=== PATIENT | female | born 1940 | race Caucasian/White ===

== ENCOUNTER 2018-11-17 12:06 | Emergency (ER) | payer MEDICARE, OTHER ==
[2018-11-17 12:14] VITALS: BP 141/74
--- NOTE | 2018-11-17 13:30 | EDM.PDOC ---
ED HPI GENERAL MEDICAL PROBLEM - General Chief Complaint: General Stated Complaint: LUNG CANCER AND SOB Time Seen by Provider: 11/17/18 13:14 Source of Information: Reports: Patient, RN Notes Reviewed History Limitations: Reports: No Limitations - History of Present Illness INITIAL COMMENTS - FREE TEXT/NARRATIVE: The patient states that she underwent a thyroid biopsy this past September, which found a thyroid cancer. She then underwent a complete thyroidectomy on 10/30/2018 at [facility]. She was discharged home the following day, 10/31/2018, on levothyroxine. Her sutures were removed a week later. The patient states that she has had a diminished voice and dyspnea whenever she speaks for a prolonged period of time, ever since surgery. No recent fever. When she called her surgeon's office today, she was instructed to go to the ER. The patient states that she has an appointment to see Dr. Powell, an [facility] Presser, on 12/04/2018, then follow-up with her surgeon the following day , 12/05/2018. The patient's PCP is Dr. Paula Coker. Posterior Throat Pain Score (Numeric/FACES): 6 - Related Data Allergies Allergy/AdvReac Type Severity Reaction Status Date / Time animal dander Allergy Airway Verified 08/26/16 07:25 Tightness codeine Allergy Airway Verified 08/26/16 07:25 Tightness Penicillins Allergy Cannot Verified 03/20/18 09:30 Remember Home Meds: Home Meds Levothyroxine 125 mcg PO DAILY 11/17/18 [History] Losartan Potassium 100 mg PO DAILY 11/17/18 [History] amLODIPine [Norvasc] 5 mg PO DAILY 11/17/18 [History] Past Medical History Cardiovascular History: Reports: Hypertension Gastrointestinal History: Reports: Colon Polyp 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 ED EXAM, GENERAL - Physical Exam Exam: See Below Exam Limited By: No Limitations General Appearance: Alert, WD/WN, No Apparent Distress Eye Exam: Bilateral Eye: EOMI, Normal Inspection Ears: Normal External Exam, Normal Canal, Hearing Grossly Normal, Normal TMs Nose: Normal Inspection, Normal Mucosa, No Blood Throat/Mouth: Normal Inspection, Normal Lips, Normal Teeth, Normal Gums, Normal Oropharynx, Normal Voice (slightly hoarse), No Airway Compromise Head: Atraumatic, Normocephalic Neck: Supple, Non-Tender, Full Range of Motion, Other (Well-healing transverse scar at the inferior aspect of the patient's anterior neck, without associated swelling, erythema or other suggestion of infection). No: Lymphadenopathy (L), Lymphadenopathy (R) Respiratory/Chest: No Respiratory Distress, Lungs Clear, Normal Breath Sounds, No Accessory Muscle Use. No: Decreased Breath Sounds, Crackles, Rhonchi, Wheezing, Stridor, Prolonged Expiration Cardiovascular: Normal Peripheral Pulses, Regular Rate, Rhythm, No Gallop, No JVD, No Murmur, No Rub Peripheral Pulses: 4+: Radial (L), Radial (R) GI/Abdominal: Normal Bowel Sounds, Soft, Non-Tender, No Organomegaly, No Distention, No Abnormal Bruit, No Mass (Female) Exam: Deferred Rectal (Female) Exam: Deferred Back Exam: Normal Inspection, Full Range of Motion, NT Extremities: Normal Inspection, Normal Range of Motion, No Pedal Edema, Normal Capillary Refill Neurological: Alert, Oriented, Normal Cognition, No Motor/Sensory Deficits Psychiatric: Normal Affect Skin Exam: Warm, Dry, Intact, Normal Color, No Rash Course - Vital Signs Last Recorded V/S: Last Vital Signs Temp 37.3 C 11/17/18 12:11 Pulse 87 11/17/18 12:11 Resp 20 11/17/18 12:11 BP 141/74 H 11/17/18 12:11 Pulse Ox 99 11/17/18 12:11 - Orders/Labs/Meds Orders: Active Orders 24 hr Category Date Time Status Chest 2V [CR] Stat Exams 11/17/18 13:27 Taken Labs: Laboratory Tests 11/17/18 11/17/18 11/17/18 Range/Units 13:45 13:45 13:45 WBC 5.38 (3.98-10.04) K/mm3 RBC 3.90 L (3.98-5.22) M/mm3 Hgb 11.7 (11.2-15.7) gm/L Hct 35.7 (34.1-44.9) % MCV 91.5 (79.4-94.8) fl MCH 30.0 (25.6-32.2) pg MCHC 32.8 (32.2-35.5) g/dl RDW Std Deviation 40.3 (36.4-46.3) fL Plt Count 289 (182-369) K/mm3 MPV 10.0 (9.4-12.3) fl Neutrophils % (Manual) 70 H (40-60) % Band Neutrophils % 0 (0-10) % Lymphocytes % (Manual) 25 (20-40) % Atypical Lymphs % 0 % Monocytes % (Manual) 1 L (2-10) % Eosinophils % (Manual) 4 (0.7-5.8) % Basophils % (Manual) 0 L (0.1-1.2) Platelet Estimate Adequate Poikilocytosis 1+ slight Tear Drop Cells Few Ovalocytes 1+ slight RBC Morph Comment Not Reportable D-Dimer, Quantitative 0.41 (0.19-0.50) mg/L Sodium 143 (136-145) mEq/L Potassium 3.8 (3.5-5.1) mEq/L Chloride 107 (98-107) mEq/L Carbon Dioxide 26 (21-32) mEq/L Anion Gap 13.8 (5-15) BUN 19 H (7-18) mg/dL Creatinine 0.8 (0.55-1.02) mg/dL Est Cr Clr Drug Dosing 58.61 mL/min Estimated GFR (MDRD) > 60 (>60) mL/min BUN/Creatinine Ratio 23.8 H (14-18) Glucose 103 (83-115) mg/dL Calcium 7.8 L (8.5-10.1) mg/dL Magnesium 1.9 (1.8-2.4) mg/dl Total Bilirubin 0.4 (0.2-1.0) mg/dL AST 16 (15-37) U/L ALT 25 (14-59) U/L Alkaline Phosphatase 62 (46-116) U/L Total Protein 6.6 (6.4-8.2) g/dl Albumin 3.5 (3.4-5.0) g/dl Globulin 3.1 gm/dL Albumin/Globulin Ratio 1.1 (1-2) - Re-Assessments/Exams Free Text/Narrative Re-Assessment/Exam: 11/17/18 13:28 Although the patient states that her voice is hoarse, it is quite minimal - almost unnoticeable, and I did not find any abnormalities on her physical exam, either intraorally, or on pulmonary exam. Her lungs are clear to auscultation bilaterally, and she has no stridor. Her oxygen saturation is 99% on room air. I have ordered a CBC, CMP, and magnesium level to make sure that the patient does not have any immediate consequences from her surgery, and a D-dimer, to rule out a PE. I also ordered a chest x-ray, as per the recommendation of her surgeon's nurse, although I do not expect to find any abnormalities. 11/17/18 14:10 2-view chest radiograph reviewed. The cardiac silhouette is within normal limits. No pulmonary vascular congestion. No pleural effusions. No focal infiltrate. No pneumothorax. There is scoliosis. Calcification of the bilateral inferior costal cartilage is incidentally noted. Formal read per the Radiologist pending. 11/17/18 15:30 Test results discussed with the patient. Today's workup, including a CBC, CMP, magnesium level, D-dimer, and chest x-ray, are entirely unremarkable, with the exception of the patient's non-corrected calcium level being mildly low at 7.8. In accordance with current guidelines, I recommended the patient take calcium with vitamin D. The patient tells me that she is already taking Tums and vitamin D, although neither of those medicines are on her medication list. In that case, I recommended that the patient needs to take the Tums and vitamin D, then follow-up with her [facility] Presser at her currently scheduled appointment . Today's workup did not include a TSH level, as it has not been 5 weeks since the patient was started on levothyroxine (it has only been 2 and a half weeks). The patient's [facility] Presser will almost certainly recheck her thyroid level and determine if she needs additional levothyroxine. Departure - Departure Time of Disposition: 15:33 Disposition: Home, Self-Care 01 Condition: Good Clinical Impression: Hoarseness of voice, Shortness of breath - Discharge Information *PRESCRIPTION DRUG MONITORING PROGRAM REVIEWED*: Not Applicable *COPY OF PRESCRIPTION DRUG MONITORING REPORT IN PATIENT DIANE: Not Applicable Instructions: Shortness of Breath, Adult, Xmol-ha-Bopb Referrals: Paula Coker MD [Primary Care Provider] - Forms: ED Department Discharge Additional Instructions: You were seen in the emergency room for a hoarse voice and shortness of breath since undergoing thyroidectomy on 10/30/2018. Workup in the ER included a CBC, a CMP, a magnesium level, a D-dimer, and a chest x-ray. Your non-corrected calcium level was found to be mildly low at 7.8. Based on this level, we recommend that you continue to take Tums and vitamin D. The remainder of your workup was unremarkable. You are not anemic. There is no sign of an infection. The remainder of your electrolytes were normal. You do not have a blood clot in your lungs. You do not have pneumonia. Since it has only been 2 and a half weeks since you were started on levothyroxine, a TSH level was not checked. Follow-up with your Y[facility] Presser at your previously scheduled appointment on 12/04/2018, then your Surgeon at your previously scheduled appointment on 2018. If any other problems, please do not hesitate to return to the ER. - My Orders Last 24 Hours: My Active Orders 11/17/18 13:27 Chest 2V [CR] Stat - Assessment/Plan Last 24 Hours: My Active Orders 11/17/18 13:27 Chest 2V [CR] Stat
--- NOTE | 2018-11-18 09:39 | CR ---
Chest: Two views of the chest were obtained. Comparison: Prior chest x-ray of 10/27/18. Heart size is slightly enlarged. Tortuous thoracic aorta is seen. Lungs are clear with no acute parenchymal change. Minimal degenerative change is scattered within the spine with mild scoliosis. Impression: 1. Incidental findings. Nothing acute is appreciated. Diagnostic code #2
== END 2018-11-17 15:55 | disposition home or self-care (01) ==
LOC: JD.ED 12:06
DX: R49.0 Dysphonia (principal); R06.02 Shortness of breath; I10 Essential (primary) hypertension; Z85.850 Personal history of malignant neoplasm of thyroid; Z90.89 Acquired absence of other organs; Z91.09 Other allergy status, other than to drugs and biological substances; Z88.5 Allergy status to narcotic agent; Z88.0 Allergy status to penicillin
CPT/HCPCS: 36415; 71046; 71046-26; 80053; 83735; 85007; 85027; 85379; 99282; 99285

== ENCOUNTER 2019-01-11 16:00 | Emergency (ER) | payer MEDICARE, OTHER | END 2019-01-11 16:05 | disposition home or self-care (01) | LOC: JD.ED 16:00 | DX: S62.514A Nondisplaced fracture of proximal phalanx of right thumb, initial encounter for closed fracture (principal); V49.40XA Driver injured in collision with unspecified motor vehicles in traffic accident, initial encounter | CPT/HCPCS: 29125 ==

== ENCOUNTER 2022-02-23 05:23 | Emergency (ER) | payer MEDICARE, OTHER ==
[2022-02-23 05:43] VITALS: BP 147/91; PULSE 94
[2022-02-23] MEDS ORDERED: Sodium Chloride 0.9% 10 ML Syringe FLUSH PRN (05:55)
[2022-02-23] MEDS ORDERED: Famotidine 20 MG/2 ML SDV IVPUSH PRN (05:55)
[2022-02-23] MEDS ORDERED: EPINEPHrine 1 MG/ML SDV IM PRN (05:55)
[2022-02-23] MEDS ORDERED: diphenhydrAMINE 50 MG/ML SDV IVPUSH PRN (05:55)
[2022-02-23] MEDS ORDERED: methylPREDNISolone Sodium Succinate 125 MG/2 ML SDV IVPUSH PRN (05:55)
[2022-02-23] MEDS ORDERED: Albuterol 6.7 GM Inhaler INH ONE (05:56)
[2022-02-23] MEDS ORDERED: Sodium Chloride 0.9% 10 ML Syringe FLUSH SCH (06:00)
[2022-02-23] MEDS ORDERED: Acetaminophen 325 MG Tab PO ONE (07:15)
[2022-02-23] MEDS ORDERED: NS + KCl 20mEq/L 1,000 ML IV SCH (07:30)
[2022-02-23] MEDS ORDERED: Sodium Chloride 0.9% 10 ML Syringe FLUSH ONE (07:36)
[2022-02-23] MEDS ORDERED: Iopamidol 755 Mg/ML 100 ML Bottle IVPUSH ONE (07:36)
[2022-02-23] MEDS ORDERED: Sodium Chloride 0.9% 100 ML IV SCH (07:45)
== END 2022-02-23 09:33 | disposition home or self-care (01) ==
LOC: JD.ED 05:23
DX: U07.1 COVID-19 (principal); I10 Essential (primary) hypertension; Z86.16 Personal history of COVID-19; Z88.0 Allergy status to penicillin; Z88.5 Allergy status to narcotic agent; Z91.09 Other allergy status, other than to drugs and biological substances; Z79.899 Other long term (current) drug therapy
CPT/HCPCS: 36415; 71045; 71275; 80053; 84484; 85025; 85379; 93005; 94640; 96365; 96366; 99285; A9270; J3480; J3490; Q0222; Q9967; 93010; 99284

== ENCOUNTER 2022-02-24 08:10 | Emergency (ER) | payer MEDICARE, OTHER ==
[2022-02-24 08:28] VITALS: PULSE 103
[2022-02-24] MEDS ORDERED: cefTRIAXone 1 GM Vial IM ONE (09:03)
[2022-02-24 09:12] VITALS: BP 123/83
[2022-02-24] MEDS ORDERED: cefTRIAXone 1 GM, Lidocaine 1% 2.1 ML IM ONE ×2 (09:38)
== END 2022-02-24 10:10 | disposition home or self-care (01) ==
LOC: JD.ED 08:10
DX: S32.010A Wedge compression fracture of first lumbar vertebra, initial encounter for closed fracture (principal); K59.01 Slow transit constipation; I10 Essential (primary) hypertension; Z88.5 Allergy status to narcotic agent; Z88.0 Allergy status to penicillin; Z91.09 Other allergy status, other than to drugs and biological substances; Z79.899 Other long term (current) drug therapy; Z86.16 Personal history of COVID-19
CPT/HCPCS: 96372; 99282; J0696

== ENCOUNTER → 2022-04-14 | Day surgery (SDC) | payer MEDICARE, OTHER ==
[~2022-04-14] MED LIST: Citric Acid/Sodium Citrate Solution 30 ML Cup ONE; Citric Acid/Sodium Citrate Solution 30 ML Cup PO ONE; Dexamethasone 4 MG/ML 5 ML MDV ONE; EPINEPHrine 1 MG/ML SDV ONE; Ketorolac 15 MG/ML SDV ONE; Lactated Ringers 1,000 ML IV SCH; Lactated Ringers 1,000 ML ONE; Lidocaine 1% 2 ML ONE; Lidocaine 1%/Sod Bicarbonate in NS 8.4% 1 ML Syringe IDERM PRN; Midazolam 1 MG/ML 2 ML SDV ONE; Morphine 2 MG/ML SYRINGE ONE; Morphine 8 MG, EPINEPHrine 0.3 MG, Cefuroxime 750 MG, Ketorolac 30 MG, Sodium Chloride ... PRN; Ondansetron 4 MG/2 ML SDV IVPUSH PRN; Ondansetron 4 MG/2 ML SDV ONE; Propofol 200 MG/20 ML SDV ONE; Ropivacaine 0.5% 5 MG/ML 30 ML SDV ONE; Scopolamine 1.5 MG Transdermal Patch TOP ONE; Sodium Chloride 0.9% 10 ML Syringe FLUSH PRN; Sodium Chloride 0.9% 10 ML Syringe FLUSH SCH; Vancomycin 1 GM SDV ONE; ceFAZolin 2 GM Vial ONE; fentaNYL 100 MCG/2 ML SDV IVPUSH PRN; fentaNYL 100 MCG/2 ML SDV ONE; oxyCODONE 5 MG Tab PO ONE
[2022-04-14 10:45] VITALS: BP 141/70
[2022-04-14 11:40] VITALS: PULSE 70
== END | disposition home or self-care (01) ==
LOC: JD.SDS 06:07
PROVIDERS: ATTEND Orthopaedic Surgery
DX: M17.12 Unilateral primary osteoarthritis, left knee (principal); E03.9 Hypothyroidism, unspecified; I10 Essential (primary) hypertension; E78.5 Hyperlipidemia, unspecified; R63.0 Anorexia; E87.6 Hypokalemia; E83.51 Hypocalcemia; Z79.890 Hormone replacement therapy; Z79.899 Other long term (current) drug therapy; Z88.5 Allergy status to narcotic agent; Z88.0 Allergy status to penicillin; Z90.49 Acquired absence of other specified parts of digestive tract; Z98.890 Other specified postprocedural states
CPT/HCPCS: 0055T; 27447; 36415; 73560; 84484; 97116; 97161; A9270; C1713; C1776; J0171; J0690; J0697; J1100; J1885; J2250; J2270; J2405; J2704; J2795; J3370; J7120; 01402; 64447; 99100; J3010

== ENCOUNTER 2022-04-22 18:20 | Emergency (ER) | payer MEDICARE, OTHER ==
[2022-04-22 18:34] VITALS: BP 121/76; PULSE 107
[2022-04-22] MEDS ORDERED: Sodium Chloride 0.9% 1,000 ML IV STA (18:52)
== END 2022-04-22 21:07 | disposition home or self-care (01) ==
LOC: JD.ED 18:20
DX: G89.18 Other acute postprocedural pain (principal); D64.9 Anemia, unspecified; K59.00 Constipation, unspecified; E03.9 Hypothyroidism, unspecified; I10 Essential (primary) hypertension; Z88.5 Allergy status to narcotic agent; Z88.0 Allergy status to penicillin; Z91.048 Other nonmedicinal substance allergy status; Z79.899 Other long term (current) drug therapy; Z86.16 Personal history of COVID-19; Z90.49 Acquired absence of other specified parts of digestive tract
CPT/HCPCS: 74018; 96360; 99284; J7030

== ENCOUNTER 2022-04-25 10:21 | Emergency (ER) | payer MEDICARE, OTHER ==
[2022-04-25] MEDS ORDERED: Lidocaine 2% Jelly 10 ML Urojet MUCMEM ONE ×2 (12:52→13:18)
[2022-04-25] MEDS ORDERED: Lidocaine 2% 11 ML Jelly Filled Syringe ONE (13:06)
[2022-04-25] MEDS ORDERED: Ibuprofen 600 MG Tab PO ONE (14:30)
[2022-04-25 18:01] VITALS: BP 116/77; PULSE 54
== END 2022-04-25 18:00 | disposition home or self-care (01) ==
LOC: JD.ED 10:21
DX: K64.8 Other hemorrhoids (principal); E78.00 Pure hypercholesterolemia, unspecified; I10 Essential (primary) hypertension; M19.90 Unspecified osteoarthritis, unspecified site; E03.9 Hypothyroidism, unspecified; Z88.0 Allergy status to penicillin; Z88.5 Allergy status to narcotic agent; Z91.09 Other allergy status, other than to drugs and biological substances; Z79.899 Other long term (current) drug therapy; Z86.16 Personal history of COVID-19
CPT/HCPCS: 36415; 74018; 85014; 85018; 99283; A9270

== ENCOUNTER 2022-04-29 14:48 | Inpatient (IN) | payer MEDICARE, OTHER ==
[2022-04-29] MEDS ORDERED: Sodium Chloride 0.9% 10 ML Syringe FLUSH ONE (15:43)
[2022-04-29] MEDS ORDERED: Iopamidol 755 Mg/ML 100 ML Bottle IVPUSH ONE (15:43)
[2022-04-29] MEDS ORDERED: Sodium Chloride 0.9% 100 ML IV SCH (15:45)
[2022-04-29] MEDS ORDERED: Ondansetron 4 MG/2 ML SDV IV PRN (16:33)
[2022-04-29] MEDS ORDERED: Sodium Chloride 0.9% 10 ML Syringe FLUSH PRN (16:33)
[2022-04-29] MEDS ORDERED: Albuterol 6.7 GM Inhaler INH PRN (16:38)
[2022-04-29] MEDS ORDERED: Sodium Chloride 0.9% 1,000 ML IV SCH ×2 (16:45→19:45)
[2022-04-29] MEDS: Heparin Sodium 5,000 Units/ML Vial SUBCUT SCH (19:28)
[2022-04-29] MEDS ORDERED: Potassium Chloride 20 MEQ Tab.ER PO ONE (19:42)
[2022-04-29] MEDS: Cyclobenzaprine 10 MG Tab PO PRN (20:12)
[2022-04-29] MEDS ORDERED: LORazepam 2 MG/ML SDV IVPUSH ONE (21:32)
[2022-04-30] MEDS ORDERED: Sodium Chloride 3% 500 ML IV SCH ×2 (00:03→08:30)
[2022-04-30] MEDS: Heparin Sodium 5,000 Units/ML Vial SUBCUT SCH ×3 (02:15→19:25)
[2022-04-30] MEDS: Levothyroxine 125 MCG Tab PO SCH (06:12)
[2022-04-30] MEDS ORDERED: Triamcinolone Acetonide 0.1% Crm 15 GM Tube TOP PRN (07:07)
[2022-04-30] MEDS: Losartan 100 MG Tab PO SCH (08:33)
[2022-04-30] MEDS: amLODIPine 5 MG Tab PO SCH (08:38)
[2022-04-30] MEDS ORDERED: Sodium Chloride 0.9% 1,000 ML IV SCH (12:30)
[2022-04-30] MEDS: Sodium Chloride 1 GM Tab PO SCH (21:08)
[2022-05-01] MEDS: Acetaminophen 325 MG Tab PO PRN ×3 (00:12→19:31)
[2022-05-01] MEDS: Cyclobenzaprine 10 MG Tab PO PRN ×2 (02:03→21:13)
[2022-05-01] MEDS: Heparin Sodium 5,000 Units/ML Vial SUBCUT SCH ×3 (02:05→18:31)
[2022-05-01] MEDS ORDERED: Sodium Chloride 0.9% 1,000 ML IV SCH (03:30)
[2022-05-01] MEDS: Levothyroxine 125 MCG Tab PO SCH (06:06)
[2022-05-01] MEDS: Sodium Chloride 1 GM Tab PO SCH ×3 (06:06→21:13)
[2022-05-01] MEDS ORDERED: Metoclopramide 5 MG Tab PO PRN (09:52)
[2022-05-01] MEDS: amLODIPine 5 MG Tab PO SCH (10:02)
[2022-05-01] MEDS: Megestrol Susp 40 MG/ML 10 ML UD Cup PO SCH (10:05)
[2022-05-01] MEDS: Losartan 100 MG Tab PO SCH (10:05)
[2022-05-01] MEDS: Ondansetron 4 MG Tab.DIS PO PRN ×2 (12:28→16:25)
[2022-05-01 16:19] VITALS: PULSE 77
[2022-05-02] MEDS: Heparin Sodium 5,000 Units/ML Vial SUBCUT SCH ×2 (02:59→09:30)
[2022-05-02] MEDS: Levothyroxine 125 MCG Tab PO SCH (05:17)
[2022-05-02] MEDS: Sodium Chloride 1 GM Tab PO SCH (05:17)
[2022-05-02] MEDS: Acetaminophen 325 MG Tab PO PRN (09:30)
[2022-05-02] MEDS: Megestrol Susp 40 MG/ML 10 ML UD Cup PO SCH (09:31)
[2022-05-02] MEDS: Losartan 100 MG Tab PO SCH (09:31)
[2022-05-02] MEDS: amLODIPine 5 MG Tab PO SCH (09:33)
[2022-05-02 13:56] VITALS: BP 114/69
== END 2022-05-02 12:53 | DRG 641 ==
LOC: JD.ED 14:48 → JD.ICU 16:33
PROVIDERS: ADMIT Hospitalist; ATTEND Hospitalist
DX: R41.0 Disorientation, unspecified (principal); E87.1 Hypo-osmolality and hyponatremia; Z96.653 Presence of artificial knee joint, bilateral; I10 Essential (primary) hypertension; E03.9 Hypothyroidism, unspecified; J30.9 Allergic rhinitis, unspecified; M54.2 Cervicalgia; R63.0 Anorexia; M41.9 Scoliosis, unspecified; E78.00 Pure hypercholesterolemia, unspecified; H91.90 Unspecified hearing loss, unspecified ear; M19.90 Unspecified osteoarthritis, unspecified site; Z96.659 Presence of unspecified artificial knee joint; Z79.890 Hormone replacement therapy; Z86.16 Personal history of COVID-19; Z90.49 Acquired absence of other specified parts of digestive tract; Z88.5 Allergy status to narcotic agent; Z88.0 Allergy status to penicillin; Z79.899 Other long term (current) drug therapy; Z91.09 Other allergy status, other than to drugs and biological substances
CPT/HCPCS: 36415; 70450; 70496; 70498; 80053; 83735; 85025; 85610; 93005; 99285; J3490; Q9967; 30901; 80048; 97110-GP; 97116-GP; 97161-GP; 97530-GP; 99222; 99232; 99239; A9270-GY; J1644; J2060; J7030; J7131

== ENCOUNTER → 2022-07-05 | Day surgery (SDC) | payer MEDICARE, OTHER ==
[~2022-07-05] MED LIST changes: -Citric Acid/Sodium Citrate Solution 30 ML Cup ONE; -Citric Acid/Sodium Citrate Solution 30 ML Cup PO ONE; -Dexamethasone 4 MG/ML 5 ML MDV ONE; +EPINEPHrine 0.3 MG, Cefuroxime 750 MG, Ketorolac 30 MG, Sodium Chloride 0.9% 7.9 ML ONE; -EPINEPHrine 1 MG/ML SDV ONE; -Ketorolac 15 MG/ML SDV ONE; +Lactated Ringers 1,000 ML IV ONE; -Lactated Ringers 1,000 ML IV SCH; -Lactated Ringers 1,000 ML ONE; -Lidocaine 1% 2 ML ONE; +Lidocaine 1%/Sod Bicarbonate in NS 8.4% 1 ML Syringe IDERM ONE; -Lidocaine 1%/Sod Bicarbonate in NS 8.4% 1 ML Syringe IDERM PRN; -Midazolam 1 MG/ML 2 ML SDV ONE; -Morphine 2 MG/ML SYRINGE ONE; -Morphine 8 MG, EPINEPHrine 0.3 MG, Cefuroxime 750 MG, Ketorolac 30 MG, Sodium Chloride ... PRN; -Ondansetron 4 MG/2 ML SDV IVPUSH PRN; -Ondansetron 4 MG/2 ML SDV ONE; +Propofol 200 MG/20 ML SDV IV ONE; -Propofol 200 MG/20 ML SDV ONE; -Ropivacaine 0.5% 5 MG/ML 30 ML SDV ONE; -Scopolamine 1.5 MG Transdermal Patch TOP ONE; -Sodium Chloride 0.9% 10 ML Syringe FLUSH PRN; -Sodium Chloride 0.9% 10 ML Syringe FLUSH SCH; +Tranexamic Acid 1,000 MG/10 ML Vial ONE; +ceFAZolin 2 GM Vial IV ONE; -ceFAZolin 2 GM Vial ONE; +fentaNYL 100 MCG/2 ML SDV IV ONE; -fentaNYL 100 MCG/2 ML SDV IVPUSH PRN; -fentaNYL 100 MCG/2 ML SDV ONE; +fentaNYL 12 MCG/HR Transdermal Patch TRDERM ONE; -oxyCODONE 5 MG Tab PO ONE
== END ==
LOC: JD.SDS 06:00
PROVIDERS: ATTEND Orthopaedic Surgery
DX: S83.102A Unspecified subluxation of left knee, initial encounter (principal); K21.9 Gastro-esophageal reflux disease without esophagitis; F41.9 Anxiety disorder, unspecified; F32.A Depression, unspecified; I10 Essential (primary) hypertension; E03.9 Hypothyroidism, unspecified; G62.9 Polyneuropathy, unspecified; Z88.5 Allergy status to narcotic agent; Z88.0 Allergy status to penicillin; Z79.899 Other long term (current) drug therapy; Z79.890 Hormone replacement therapy; Z86.16 Personal history of COVID-19; Z90.49 Acquired absence of other specified parts of digestive tract; Z98.890 Other specified postprocedural states
CPT/HCPCS: 97161-GP; A9270-GY; J0171; J0690; J0697; J1885; J2704; J3010; J3370; J7120

== ENCOUNTER 2024-07-12 10:34 | Emergency (ER) | payer MEDICARE, OTHER ==
[2024-07-12 11:26] LABS: BASOPHILS ABSOLUTE AUTO 0.1 K/mm3 (0.0-0.2); EOSINOPHILS ABSOLUTE AUTO 0.3 K/mm3 (0.0-0.4); EOSINOPHILS PERCENT AUTO 5.5 % (0.0-6.0); HEMATOCRIT 40.4 % (37.0-47.0); HEMOGLOBIN 13.4 gm/dl (12.0-16.0); IMMATURE GRAN ABSOLUTE AUTO 0.02 K/mm3 (0.00-0.05); IMMATURE GRAN PERCENT AUTO 0.4 % (0.0-0.4); LYMPHOCYTES ABSOLUTE AUTO 1.4 K/mm3 (1.0-4.8); LYMPHOCYTES PERCENT AUTO 27.6 % (24.0-44.0); MEAN CORPUSCULAR HEMOGLOBIN 29.8 pg (28.0-32.0); MEAN CORPUSCULAR HGB CONC 33.2 g/dl (32.0-36.0); MEAN PLATELET VOLUME 10.5 fl (9.4-12.3); MONOCYTES ABSOLUTE AUTO 0.3 K/mm3 (0.0-0.8); MONOCYTES PERCENT AUTO 6.3 % (0.0-8.0); NEUTROPHILS PERCENT AUTO 59.2 % (41.0-71.0); PLATELET COUNT,PLT 225 K/mm3 (150-400); RED BLOOD CELL COUNT 4.49 M/mm3 (4.10-5.30); WHITE BLOOD CELL COUNT,WBC 5.08 K/mm3 (3.9-11.3)
[2024-07-12 11:31] LABS: APPEARANCE,URINE CLEAR (Clear); BILIRUBIN,URINE NEGATIVE (Negative); COLOR,URINE LIGHT YELLOW (Yellow); GLUCOSE,URINE NEGATIVE (Negative); KETONES,URINE NEGATIVE (Negative); LEUKOCYTE ESTERASE,URINE TRACE (Negative); NITRITE,URINE NEGATIVE (Negative); OCCULT BLOOD,URINE TRACE-INTACT (Negative); PROTEIN,URINE 2+ (Negative); UROBILINOGEN,URINE 0.2 (0.2-1.0)
[2024-07-12 11:42] LABS: BACTERIA,URINE FEW /hpf (FEW); EPITHELIAL CELLS,URINE 0-5 /hpf (0-5); MUCUS,URINE FEW /hpf (FEW); RBC,URINE 0-5 /hpf (0-5); WBC,URINE 0-5 /hpf (0-5)
[2024-07-12 11:44] LABS: A/G RATIO 1.3 (1-2); ALBUMIN 4.1 g/dl (3.4-5.0); ANION GAP 17.8 (5-15); BILIRUBIN TOTAL 0.7 mg/dL (0.2-1.0); CALCIUM 8.4 mg/dL (8.5-10.1); CREATININE 0.9 mg/dL (0.55-1.02); EST CRCL DRUG DOSING (CG) 39.46 mL/min; POTASSIUM,K 3.8 mEq/L (3.5-5.1); PROTEIN TOTAL,TP 7.2 g/dl (6.4-8.2)
[2024-07-12] MEDS: Iopamidol 755 Mg/ML 100 ML Bottle IVPUSH ONE (13:16)
[2024-07-12] MEDS: Sodium Chloride 0.9% 10 ML Syringe FLUSH ONE (13:16)
[2024-07-12] MEDS: Sodium Chloride 0.9% 100 ML IV SCH (13:16)
[2024-07-12 15:08] VITALS: BP 154/82; PULSE 72
== END 2024-07-12 14:28 | disposition home or self-care (01) ==
LOC: JD.ED 10:34
DX: R53.1 Weakness (principal); I10 Essential (primary) hypertension; E78.00 Pure hypercholesterolemia, unspecified; E03.9 Hypothyroidism, unspecified; Z86.16 Personal history of COVID-19; Z90.49 Acquired absence of other specified parts of digestive tract; Z79.899 Other long term (current) drug therapy; Z79.82 Long term (current) use of aspirin; Z88.0 Allergy status to penicillin; Z88.5 Allergy status to narcotic agent; Z91.048 Other nonmedicinal substance allergy status
CPT/HCPCS: 36415; 70450; 70450-26; 71045; 71045-26; 71275; 71275-26; 80053; 81001; 84484; 85025; 85379; 87086; 93005; 99285; J3490; Q9967

== ENCOUNTER 2025-01-22 06:42 | Day surgery (SDC) | payer MEDICARE, OTHER ==
[~2025-01-22 06:42] MED LIST changes: -EPINEPHrine 0.3 MG, Cefuroxime 750 MG, Ketorolac 30 MG, Sodium Chloride 0.9% 7.9 ML ONE; -Lactated Ringers 1,000 ML IV ONE; -Lidocaine 1%/Sod Bicarbonate in NS 8.4% 1 ML Syringe IDERM ONE; -Propofol 200 MG/20 ML SDV IV ONE; +Sodium Chloride 0.9% 10 ML Syringe FLUSH PRN; +Sodium Chloride 0.9% 10 ML Syringe FLUSH SCH; -Tranexamic Acid 1,000 MG/10 ML Vial ONE; -Vancomycin 1 GM SDV ONE; -ceFAZolin 2 GM Vial IV ONE; -fentaNYL 100 MCG/2 ML SDV IV ONE; -fentaNYL 12 MCG/HR Transdermal Patch TRDERM ONE
[2025-01-22] MEDS: Lactated Ringers 1,000 ML IV SCH (06:48)
[2025-01-22] MEDS ORDERED: Propofol 200 MG/20 ML SDV ONE ×2 (06:50→07:50)
[2025-01-22] MEDS ORDERED: Lidocaine 1% 2 ML ONE (07:24)
[2025-01-22 14:43] VITALS: BP 120/64; PULSE 70
== END 2025-01-22 08:55 | disposition home or self-care (01) ==
LOC: JD.SDS 06:42
PROVIDERS: ATTEND Surgery
DX: D12.2 Benign neoplasm of ascending colon (principal); Z86.0100 Personal history of colon polyps, unspecified; I10 Essential (primary) hypertension; E78.00 Pure hypercholesterolemia, unspecified; E03.9 Hypothyroidism, unspecified; Z79.890 Hormone replacement therapy; Z79.899 Other long term (current) drug therapy; Z88.5 Allergy status to narcotic agent; Z88.0 Allergy status to penicillin
CPT/HCPCS: 45380; J2003; J2704; J7120; 00811; 99100